=== PATIENT | female | born 1985 | race Caucasian/White ===

== ENCOUNTER 2022-04-30 19:08 | Emergency (ER) | payer SELFPAY ==
[2022-04-30] MEDS ORDERED: Acetaminophen 500 MG TAB ONE (19:38)
[2022-04-30] MEDS ORDERED: Ibuprofen 800 MG TAB ONE (19:38)
== END 2022-04-30 19:57 ==
LOC: ERS 19:08
DX: K02.9 Dental caries, unspecified (principal); H66.91 Otitis media, unspecified, right ear
CPT/HCPCS: 99282